=== PATIENT | female | born 1980 | race Two or more races ===

== ENCOUNTER → 2023-08-11 | Outpatient (CLI) | payer OTHER ==
[2023-08-11 08:07] LABS: Basophils # (auto) 0 10 ^3/uL (0-0.2); Basophils % (auto) 0.8 % (0.0-2.0); Eosinophils # (auto) 0.1 10 ^3/uL (0-0.8); Eosinophils % (auto) 2.8 % (0.0-7.0); Hematocrit 40.3 % (36.0-46.0); Hemoglobin 13.3 g/dL (12.2-16.2); Lymphocytes # (auto) 1.9 10 ^3/uL (0.4-5.4); Lymphocytes % (auto) 46.6 % (10.0-50.0); Mean Corpuscular Hemoglobin 27.6 pg (28.0-32.0); Mean Corpuscular Hgb Conc. 33.1 g/dL (32.0-36.0); Mean Corpuscular Volume 83.6 fL (80.0-100.0); Monocytes # (auto) 0.2 10 ^3/uL (0-1.3); Monocytes % (auto) 4.7 % (0.0-12.0); Neutrophils # (auto) 1.8 10 ^3/uL (1.6-8.6); Neutrophils % (auto) 45.1 % (37.0-80.0); Red Blood Cells 4.82 10^6/uL (4.0-5.20); Red Cell Distribution Width 14.3 % (11.8-14.3)
[2023-08-11 08:46] LABS: Alanine Aminotransferase 67 U/L (7-40); Alkaline Phosphatase 70 U/L (46-116); Anion Gap 8 (5-15); Aspartate Aminotransferase 33 U/L (13-40); BUN/Creatinine Ratio 11.3 (10.0-20.0); Blood Urea Nitrogen 8 mg/dL (9-23); Calcium 9.6 mg/dL (8.5-10.1); Carbon Dioxide 23 mmol/L (20-30); Chloride 103 mmol/L (98-107); Glucose 219 mg/dL (74-106); Sodium 134 mmol/L (136-145); Triglycerides 468 mg/dL (< 150)
[2023-08-11 08:47] LABS: Albumin 4.5 g/dL (3.2-4.8); Bilirubin, Total 0.7 mg/dL (0.2-1.0); Cholesterol 271 mg/dL (< 200); HDL Cholesterol 43 mg/dL (40-59); Total Protein 7.8 g/dL (5.7-8.2)
== END | disposition home or self-care (01) ==
LOC: LAB 07:30
PROVIDERS: ATTEND Family Medicine
DX: E11.65 Type 2 diabetes mellitus with hyperglycemia (principal); E78.2 Mixed hyperlipidemia; E55.9 Vitamin D deficiency, unspecified; D50.9 Iron deficiency anemia, unspecified
CPT/HCPCS: 36415; 80053; 80061; 82306; 83036; 83540; 83550; 85025

== ENCOUNTER → 2024-01-04 | Outpatient (CLI) | payer OTHER ==
[2024-01-04 09:04] LABS: % Iron Saturation 13.8 % (15-50)
[2024-01-04 09:08] LABS: Alanine Aminotransferase 32 U/L (7-40); Albumin 4.7 g/dL (3.2-4.8); Alkaline Phosphatase 69 U/L (46-116); Anion Gap 11 (5-15); Aspartate Aminotransferase 16 U/L (13-40); BUN/Creatinine Ratio 16.9 (10.0-20.0); Blood Urea Nitrogen 12 mg/dL (9-23); Calcium 9.6 mg/dL (8.7-10.4); Carbon Dioxide 22 mmol/L (20-31); Chloride 102 mmol/L (98-107); Glucose 246 mg/dL (74-106); Potassium 3.9 mmol/L (3.5-5.1); Sodium 135 mmol/L (136-145)
[2024-01-04 09:09] LABS: Bilirubin, Total 0.7 mg/dL (0.2-1.0)
== END | disposition home or self-care (01) ==
LOC: LAB 07:07
PROVIDERS: ATTEND Family Medicine
DX: E11.65 Type 2 diabetes mellitus with hyperglycemia (principal); E78.2 Mixed hyperlipidemia; D50.9 Iron deficiency anemia, unspecified
CPT/HCPCS: 36415; 80053; 82043; 82728; 83036; 83540; 83550; 85045

== ENCOUNTER 2024-02-07 11:47 | Inpatient (IN) | payer OTHER ==
[~2024-02-07] VITALS: Ht 157.5 cm; Wt 67.4 kg
[2024-02-07 14:46] VITALS: BP 133/89; PULSE 90; RESP 18; TEMP 97.7; O2SAT 97
[2024-02-07] MEDS ORDERED: METF750T54 PO (14:52)
[2024-02-07] MEDS ORDERED: ASPI-543 PO (14:52)
[2024-02-07] MEDS ORDERED: ATOR40TA52 PO (14:53)
[2024-02-07] MEDS ORDERED: HYDROcodone-ACET 5/325MG TAB PO PRN (15:45)
[2024-02-07] MEDS ORDERED: ONDANSETRON HCL 4 MG/2 ML VIAL IV PRN (15:45)
[2024-02-07] MEDS ORDERED: MORPHINE SULFATE INJ 2 MG/ml SYRG IV PRN ×2 (15:45)
[2024-02-07] MEDS ORDERED: ACETAMINOPHEN 325 MG TAB PO PRN (15:45)
[2024-02-07] MEDS ORDERED: NITROGLYCERIN 0.4 MG SL TAB SL PRN (15:45)
[2024-02-07] MEDS ORDERED: DEXTROSE (50%) 50ML SYRG IV PRN (15:45)
--- NOTE | 2024-02-07 15:51 | DVHHP2 ---
History of Present Illness Reason for Visit: Chest pain History of Present Illness This 43-year-old female patient with past medical history of diabetes type 2 and hyperlipidemia, a transfer from [facility] to rule out ACS. The patient reports intermittent sharp chest pain for the past two months. Symptoms worsened for the past few days and is associated with lightheadedness, dizziness, jaw pain, and shortness of breath for which prompted the patient to go to the emergency department for further evaluation. The patient currently denies chest pain, shortness of breath, [place], edema, or other acute symptoms. She denies tobacco, illicit drug, or ETOH use abuse. Denies familiar history of CAD. Labs including troponin unremarkable-- See paper chart Past Medical History As stated in HPI Past Surgical History Denies Family History Reviewed, non-contributory to the management of this case. Past Social History The patient lives at home, denies smoking, alcohol or illicit drugs abuse. Review of Systems Constitutional: No: Fever, Chills, Sweats, Weakness, Malaise, Other Eyes: No: Pain, Vision change, Conjunctivae inflammation, Eyelid inflammation, Other, Redness ENT: No: Ear pain, Ear discharge, Nose pain, Nose discharge, Nose congestion, Mouth pain, Mouth swelling, Throat pain, Throat swelling, Other Respiratory: Shortness of breath; No: Cough, Dry, SOB with excertion, Wheezing, Hemoptysis, Pleuritic Pain, Sputum, Wheezing, Other Cardiovascular: Chest Pain, Other (Jaw pain); No: Palpitations, Orthopnea, Paroxysmal Noc. Dyspnea, Edema, Lt Headedness Gastrointestinal: No: Nausea, Vomiting, Abdominal Pain, Diarrhea, Constipation, Melena, Hematochezia, Other Genitourinary: No Dysuria, No Frequency, No Incontinence, No Hematuria, No Retention, No Other Musculoskeletal: No: other, neck pain, shoulder pain, arm pain, back pain, hand pain, leg pain, foot pain Skin: No: Rash, Lesions, Jaundice, Bruising, Other Neurological: No: Weakness, Numbness, Incoordination, Change in speech, Confusion, Seizures, Other Exam Vital Signs Vital Signs Date Time Temp Pulse Resp B/P (MAP) Pulse Ox O2 Delivery O2 Flow Rate FiO2 02/07/24 14:46 90 18 97 Room Air* 0 21 02/07/24 14:46 97.7 133/89 (104) 97.7 General Appearance: Alert, Oriented X3, Cooperative, No acute distress HEENT: Atraumatic, PERRLA, EOMI, Mucous membr. moist/pink Respiratory: Clear to auscultation, Normal air movement Cardiovascular: Regular rate, Normal S1, Normal S2 Abdominal: Normal bowel sounds, Soft, No tenderness, No hepatospenomegaly Extremities: No clubbing, No cyanosis, No edema, Normal pulses Skin: No rashes, No breakdown, No significant lesion Neuro: Normal gait, Normal speech, Strength at 5/5 X4 ext Psych/Mental Status: Mental status NL Assessment/Plan Assessment/Plan # Chest pain to rule out ACS Admit to telemetry unit Chest pain protocol asa, statins Cardiology consult Echo Check TSH # hyperlipidemia Check lipid panel Continue with statins # diabetes type 2 ISS Check A1c DVT prophylaxis Medical plan discussed with patient and RN Plan discussed with: Patient My Orders Orders - CHARLEY SOLIS TEACHER EDUCATION DIRECTOR Procedure Category Date Status Time Admit ADMIT 02/07/24 Verified 15:34 Code Status CODE 02/07/24 Verified 15:34 Hydrocodone-Acet PHA 02/07/24 Verified 5/325mg Tab ([place] 15:45 Ondansetron Hcl PHA 02/07/24 Verified (Zofran) 15:45 Enoxaparin Sodium PHA 02/08/24 Verified (Lovenox) 10:00 Complete Blood Count LAB 02/08/24 Verified 04:00 Comprehensive LAB 02/08/24 Verified Metabolic Panel 04:00 Cardiac DIET 02/07/24 Verified Diet-2gna,Lofat,Lochol Dinner Echo 2d Mode Cardiac US 02/07/24 Verified DOP 15:34 Condition: Fair EDDA 02/07/24 Verified 15:34 Acetaminophen Tablet PHA 02/07/24 Verified (Tylenol Tablet) 15:45 Morphine Sulfate PHA 02/07/24 Verified Injection 15:45 Nitroglycerin PHA 02/07/24 Verified Sublingual (Ntrostat 15:45 Morphine Sulfate PHA 02/07/24 Verified Injection 15:45 Stat Ekg For Chest [facility] 02/07/24 Verified Pain 15:34 Notify Of Changes [facility] 02/07/24 Verified From Base 15:34 Titrator For [facility] 02/07/24 Verified 24 Hours 15:34 Emergency Dysrhythmia [facility] 02/07/24 Verified Protocol 15:34 Rhythm Strips Once [facility] 02/07/24 Verified Every Shift 15:34 Oxygen By Nasal RT 02/07/24 Verified Cannula 15:34 Electrocardigram EKG 02/07/24 Verified 15:34 Troponin-I Hs LAB 02/07/24 Verified 15:34 * Cardiology Consult CONS 02/07/24 Verified 15:34 Npo After Midnight DIET 02/07/24 Verified Dinner Lipid Panel LAB 02/07/24 Verified 15:34 Thyroid Stimulating LAB 02/07/24 Verified Hormone 15:34 Hemoglobin A1c LAB 02/07/24 Verified 15:34 B-Type Natriuretic LAB 02/07/24 Verified Peptide 15:34 Electrocardigram EKG 02/08/24 Verified 04:00 Date of Service: Feb 07, 2024 Billing Provider: CHARLEY SOLIS Common Visit Codes: [id number] INP/OBS CARE (HIGH) CHARLEY SOLIS Feb 07, 2024 15:51
[2024-02-07 16:43] LABS: INR 1.04 (0.9-1.15); Partial Thromboplastin Time 26.8 SEC (24.5-34.5)
[2024-02-07 16:53] LABS: Triglycerides 494 mg/dL (< 150)
[2024-02-07 16:55] LABS: Cholesterol 230 mg/dL (< 200); HDL Cholesterol 40 mg/dL (40-59)
[2024-02-07 17:05] VITALS: BP 112/80; PULSE 87; RESP 16; TEMP 97.5; O2SAT 98
[2024-02-07 20:20] VITALS: PULSE 72; PULSE 85; RESP 17; O2SAT 96
[2024-02-07 22:00] VITALS: BP 128/83; PULSE 87; RESP 17; TEMP 98.1; O2SAT 96
[2024-02-07] MEDS: InsuLIN REG 1unit/0.01ml Soln (100units/ml) SC SCH (22:26)
[2024-02-07] MEDS: ACCU-CHEK COMFORT CURVE STRIP VI SCH (22:27)
[2024-02-07 22:51] LABS: Urine Bacteria FEW /hpf (None Seen); Urine Blood 2+ /uL (Negative); Urine Clarity Clear (Clear); Urine Color Light-Yellow (Yellow); Urine Protein, UAD Negative (Negative); Urine Specific Gravity 1.009 (1.001-1.035); Urine Urobilinogen Normal (Negative); Urine WBC 3 /hpf (0 - 5)
[2024-02-08] VITALS (7 sets, daily range): BP systolic 107–128; BP diastolic 73–88; PULSE 78–99; RESP 17–18; TEMP 98–98.3; O2SAT 96–100
[2024-02-08 07:10] LABS: Basophils # (auto) 0 10 ^3/uL (0-0.2); Basophils % (auto) 0.9 % (0.0-2.0); Eosinophils # (auto) 0.1 10 ^3/uL (0-0.8); Eosinophils % (auto) 2.4 % (0.0-7.0); Hematocrit 38.7 % (36.0-46.0); Lymphocytes # (auto) 1.6 10 ^3/uL (0.4-5.4); Lymphocytes % (auto) 39.7 % (10.0-50.0); Mean Corpuscular Hemoglobin 28.4 pg (28.0-32.0); Mean Corpuscular Hgb Conc. 33.6 g/dL (32.0-36.0); Mean Corpuscular Volume 84.4 fL (80.0-100.0); Monocytes # (auto) 0.2 10 ^3/uL (0-1.3); Monocytes % (auto) 4.2 % (0.0-12.0); Neutrophils # (auto) 2.1 10 ^3/uL (1.6-8.6); Neutrophils % (auto) 52.8 % (37.0-80.0); Nucleated Red Blood Cells % 0.2 %; Platelet Count (auto) 233 10^3/uL (140-450); Red Blood Cells 4.58 10^6/uL (4.0-5.20); Red Cell Distribution Width 13.8 % (11.8-14.3)
[2024-02-08 07:14] LABS: Alanine Aminotransferase 54 U/L (7-40); Albumin 4.1 g/dL (3.2-4.8); Alkaline Phosphatase 62 U/L (46-116); Anion Gap 8 (5-15); Aspartate Aminotransferase 37 U/L (13-40); BUN/Creatinine Ratio 12.5 (10.0-20.0); Blood Urea Nitrogen 7 mg/dL (9-23); Calcium 9.2 mg/dL (8.7-10.4); Carbon Dioxide 23 mmol/L (20-31); Chloride 106 mmol/L (98-107); Glucose 156 mg/dL (74-106); Potassium 3.8 mmol/L (3.5-5.1); Sodium 137 mmol/L (136-145)
[2024-02-08 07:15] LABS: Bilirubin, Total 0.9 mg/dL (0.2-1.0); Total Protein 7.2 g/dL (5.7-8.2)
[2024-02-08] MEDS: ENOXAPARIN SOD 40 MG/0.4 ML SYRINGE SC SCH (10:00)
[2024-02-08] MEDS: ASPirin-EC 81 mg tab PO SCH (11:08)
[2024-02-08 12:51] LABS: Amphetamine Screen, Urine Neg (NEGATIVE); Barbiturate Scree,Urine Neg (NEGATIVE); Benzodiazephine Screen, Urine Neg (NEGATIVE); Cannabinoid Screen, Urine Neg (NEGATIVE); Cocaine Screen, Urine Neg (NEGATIVE); Opiate Scree,Urine Neg (NEGATIVE); Phencyclidine Screen, Urine Neg (NEGATIVE)
--- NOTE | 2024-02-08 13:17 | DVH ---
CHEST RADIOGRAPH Indication:chest pain Technique: Single frontal view of the chest was obtained Comparison: None FINDINGS: Lines and Tubes: None Lungs: No focal consolidation. Pleura: No effusion. No pneumothorax. Cardiomediastinal contours: Unremarkable Bones: No acute osseous abnormality. IMPRESSION: No acute cardiopulmonary disease.
[2024-02-08 15:56] LABS: COVID19 ANTIGEN SOFIA FIA NEGATIVE (NEGATIVE); Rapid Influenza A Negative (Negative); Rapid Influenza B Negative (Negative)
--- NOTE | 2024-02-08 16:21 | DVHSR ---
APPROVED REPORT EXAM: Two-dimensional and M-mode echocardiogram with Doppler and color Doppler. Blood Pressure: 133/89 mmHg INDICATION R/O acs RISK FACTORS Height: 5'2", Weight: 144 DIMENSIONS LVDd4.1 (3.8-5.7cm)LA (2D)3.2 (1.9-4.0cm)Aortic Root3.2 (2.0-3.7cm) LVDs2.7 (2.5-4.0cm)LA (MM) (1.9-4.0cm)Aortic Cusp Exc1.8 (1.5-2.0cm) EF (%) 60.0 (55-70%)Rt. Atrium3.2 (1.9-4.0cm)Asc. Aorta cm IVSd0.9 (0.7-1.1cm)RV (D)3.0 (1.8-2.4cm) PWd1.0 (0.7-1.1cm) Mitral Valve MitralMitral Stenosis E wave0.81m/sMV Mean GR.mmHg A wave0.85m/sMV Peak GR.mmHg E/A ratio1.02D MVAcm2 DECEL [id number] 1/2 Timems Aortic Valve Aortic ValveAortic Stenosis V10.90m/Jt Mean GR.3mmHg V21.21m/Jt Peak GR.6mmHg LVOT Diameter2.1 (1.8-2.4cm)Doppler AVA2.57cm2 Pulmonic Valve V21.15m/s Tricuspid Valve TR Velocity2.43m/s [id number] Conclusion Normal left ventricular size and dimension. Normal left ventricular systolic function estimated ejec tion fraction 55%. There is a grade 1 diastolic dysfunction. Normal right ventricular size and dimension. Normal right ventricular systolic function. Normal biatrial size and dimension. Normal aortic valve structure and function. Normal mitral valve structure and function. Normal tricuspid valve structure and function. The pulmonary valve is grossly normal. No pericardial effusion.
--- NOTE | 2024-02-08 16:32 | DVHINCON2 ---
Date Seen: Feb 08, 2024 Referring Physician Reason for Consultation Chest pain rule out ACS History of Present Illness 43-year-old female patient with past medical history of type 2 diabetes, hyperlipidemia who presented to the emergency department with a chief complaint of chest pain. She for possible ischemic changes or other describes the pain as a sharp, pressure-like sensation of moderate to severe intensity, lasting about 5 minutes per episode. She reports 1 episode where the pain radiated to the jaw, with a jaw pain lasting approximately 1 minute before resolving completely. She has been experiencing similar chest pain intermittently over the past 2 months, sometimes associated with a sensation of head and neck discomfort. The patient denies any recent infection or viral illnesses and reports that the pain is not triggered or worsened by physical activity. She experiences these episodes both at rest and during light activities, such as cooking, with no identifiable triggers, stressors or strenuous activity associated with the onse t. In the emergency department her initial workup included an EKG, which was unremarkable and troponin levels which were negative. The urine test was also negative. Urinalysis revealed glucosuria, consistent with her history of diabetes, and her more recent hemoglobin A1c was 9%, indicating suboptimal glycemic control. Complete blood count and comprehensive metabolic panel were within normal limits except for an elevated glucose level. An echocardiogram is pending and the patient is scheduled for an stress test to assess for possible ischemic changes or other cardiac pathologies. Past Medical History Type 2 diabetes Overweight Hyperlipidemia Family History: Diabetes mellitus G8 MOTHER G8 BROTHER Hypercholesterolemia G8 MOTHER Hypertension G8 MOTHER Allergies: Coded Allergies: NO KNOWN ALLERGIES (Unverified , 02/07/24) Home Meds Reported Medications Atorvastatin Calcium (ATORVASTATIN CALCIUM) 40 Mg Tab, 1 TAB PO QPM, #90 TAB 3 Refills 02/07/24 Aspirin (Aspir-Low) 81 Mg Tab, 81 MG PO DAILY for 30 Days, MG 02/07/24 Metformin Hydrochloride (Metformin Hcl Er) 750 Mg Tab, 1 TAB PO BID, #60 TAB 5 Refills 02/07/24 Current Medications Current Medications Medications (Trade) Dose Ordered Sig/Jacqueline Route PRN Reason Start Time Stop Time Status Last Admin Enoxaparin Sodium (Lovenox) 40 mg DAILY SC 02/08/24 10:00 Aspirin (Ecotrin Enteric Coated Tablet) 81 mg DAILY PO 02/08/24 10:00 02/08/24 11:08 Atorvastatin Calcium (Lipitor) 40 mg QPM PO 02/08/24 18:00 Diagnostic Test (Pha) (Accu-Chek Comfort Curve T) 1 strip ACHS 02/07/24 17:00 02/08/24 11:00 Insulin Human Regular (InsuLIN R) ACHS SC 02/07/24 17:00 02/08/24 06:38 Pantoprazole Sodium (Protonix) 40 mg DAILY IV 02/09/24 10:00 Review of Systems Constitutional: No: Fever, Chills, Sweats, Weakness, Malaise, Other Eyes: No: Pain, Vision change, Conjunctivae inflammation, Eyelid inflammation, Other, Redness ENT: No: Ear pain, Ear discharge, Nose pain, Nose discharge, Nose congestion, Mouth pain, Mouth swelling, Throat pain, Throat swelling, Other Respiratory: No Wheezing, Hemoptysis, Pleuritic Pain, Sputum, Wheezing, Other Cardiovascular: No: Chest Pain, Palpitations, Orthopnea, Paroxysmal Noc. Dy spnea, Edema, Lt Headedness, Other Gastrointestinal: No: Nausea, Vomiting, Abdominal Pain, Diarrhea, Constipation, Melena, Hematochezia, Other Musculoskeletal: No: other, neck pain, shoulder pain, arm pain, back pain, hand pain, leg pain, foot pain Neurological:; No: Weakness, Numbness, Incoordination, Change in speech, Confusion, Seizures Vital Signs Vital Signs Date Time Temp Pulse Resp B/P (MAP) Pulse Ox O2 Delivery O2 Flow Rate FiO2 02/08/24 12:00 98.0 82 18 128/88 (101) 96 98.0 02/08/24 08:10 Room Air* 0 21 Physical Exam Examination General Appearance: Alert, Oriented X3, Cooperative, No acute distress HEENT: EOMI Respiratory: Clear to auscultation, Normal air movement Cardiovascular: Regular rate, Normal S1, Normal S2 Abdominal: Normal bowel sounds Extremities: No cyanosis, No edema, Normal pulses, No tenderness/swelling Skin: No rashes, No breakdown Neuro: Normal gait, Normal speech, Strength at 5/5 X4 ext, Normal tone, Sensation intact, Cranial nerves 3-12 NL, Reflexes 2+ Psych/Mental Status: Mental status NL, Mood NL Labs/Diagnostic Data Labs Test 02/08/24 15:33 02/08/24 10:58 02/08/24 06:10 02/07/24 22:20 Range/Units Influenza Type A Antigen Negative Negative Influenza Type B Antigen Negative Negative SARS-CoV-2 Antigen (Rapid) Negative NEGATIVE POC Glucose 141 H 70-106 mg/dl White Blood Count 4.0 L 4.4-10.8 10^3/uL Red Blood Count 4.58 4.0-5.20 10^6/uL Hemoglobin 13.0 12.2-16.2 g/dL Hematocrit 38.7 36.0-46.0 % Mean Corpuscular Volume 84.4 80.0-100.0 fL Mean Corpuscular Hemoglobin 28.4 28.0-32.0 pg Mean Corpuscular Hemoglobin Concent 33.6 32.0-36.0 g/dL Red Cell Distribution Width 13.8 11.8-14.3 % Platelet Count 233 140-450 10^3/uL Mean Platelet Volume 8.2 6.9-10.8 fL Neutrophils (%) (Auto) 52.8 37.0-80.0 % Lymphocytes (%) (Auto) 39.7 10.0-50.0 % Monocytes (%) (Auto) 4.2 0.0-12.0 % Eosinophils (%) (Auto) 2.4 0.0-7.0 % Basophils (%) (Auto) 0.9 0.0-2.0 % Neutrophils # (Auto) 2.1 1.6-8.6 10 ^3/uL Lymphocytes # (Auto) 1.6 0.4-5.4 10 ^3/uL Monocytes # (Auto) 0.2 0-1.3 10 ^3/uL Eosinophils # (Auto) 0.1 0-0.8 10 ^3/uL Basophils # (Auto) 0 0-0.2 10 ^3/uL Nucleated Red Blood Cells 0.2 % Sodium Level 137 136-145 mmol/L Potassium Level 3.8 3.5-5.1 mmol/L Chloride Level 106 98-107 mmol/L Carbon Dioxide Level 23 20-31 mmol/L Anion Gap 8 5-15 Blood Urea Nitrogen 7 L 9-23 mg/dL Creatinine 0.56 0.550-1.02 mg/dL Glomerular Filtration Rate Calc 115 >90 mL/min BUN/Creatinine Ratio 12.5 10.0-20.0 Serum Glucose 156 H 74-106 mg/dL Calcium Level 9.2 8.7-10.4 mg/dL Total Bilirubin 0.9 0.2-1.0 mg/dL Aspartate Amino Transferase (AST) 37 13-40 U/L Alanine Aminotransferase (ALT) 54 H 7-40 U/L Alkaline Phosphatase 62 46-116 U/L Total Protein 7.2 5.7-8.2 g/dL Albumin 4.1 3.2-4.8 g/dL Beta HCG, Quantitative 0.1 L 1.5-4.2 mIU/mL Urine Color Light-yellow Yellow Urine Clarity Clear Clear Urine pH 7.0 5.0-9.0 Urine Specific [place] 1.009 1.001-1.035 Urine Protein Negative Negative Urine Ketones Trace Negative Urine Blood 2+ H Negative /uL Urine Nitrite Negative Negative Urine Bilirubin Negative Negative Urine Urobilinogen Normal Negative mg/dL Urine Leukocyte Esterase Negative Negative /uL Urine RBC 13 0 - 4 /hpf Urine WBC 3 0 - 5 /hpf Urine Squamous Epithelial Cells Few <5 /hpf Urine Bacteria Few H None Seen /hpf Urine Glucose 4+ H Normal mg/dL Urine Opiates Screen Neg NEGATIVE Urine Fentanyl Screen Neg NEGATIVE Urine Barbiturates Screen Neg NEGATIVE Urine Phencyclidine Screen Neg NEGATIVE Urine Amphetamines Screen Neg NEGATIVE Urine Benzodiazepines Screen Neg NEGATIVE Urine Cocaine Screen Neg NEGATIVE Urine Cannabinoids Screen Neg NEGATIVE Test 02/07/24 16:11 Range/Units Prothrombin Time 11.0 9.3-11.8 sec Prothrombin Time INR 1.04 0.9-1.15 Activated Partial Thromboplast Time 26.8 24.5-34.5 SEC Hemoglobin A1c 9.0 H <5.7 % A1C Troponin I High Sensitivity < 3 L </=34 ng/L B-Type Natriuretic Peptide 16.46 0-100 pg/mL Triglycerides Level 494 H < 150 mg/dL Cholesterol Level 230 H < 200 mg/dL LDL Cholesterol < 100 mg/dL HDL Cholesterol 40 40-59 mg/dL Thyroid Stimulating Hormone (TSH) 0.71 0.55-4.78 uIU/mL Assessment Acute chest pain, likely costochondritis, rule out ACS. Uncontrolled type 2 diabetes, hemoglobin A1c 9% Overweight Plan/Recommendation Conservative management EKG and troponin levels were unremarkable Treadmill stress test Thank you for allowing us participate in this case Case discussed with Dr. Kay Critical care, time spent: 48 minutes Plan discussed with: Patient Date of Service: Feb 08, 2024 Billing Provider: GAYLE ALLEN MD Cardiology Common Codes: [id number] INP/OBS CARE (High) DOMONIQUE RODRIGUEZ RESIDENT Feb 08, 2024 16:32
[2024-02-08] MEDS: PANTOPRAZOLE 40 MG/10 ML VIAL INJ IV ONE (17:30)
[2024-02-08] MEDS: ATORVASTATIN 20 MG TAB PO SCH (17:34)
--- NOTE | 2024-02-08 17:50 | DVHPNRES ---
Progress Note Date Seen: Feb 08, 2024 Resident Creating Document: ODILON GERMAN BRYANNA Has the PT tested + for MRSA If YES, has PT been informed?: No Medical Necessity Reason Pt with a Central, PICC or Fol: No Subjective Review of Systems This is a 43-year-old female patient with a past medical history of diabetes type 2 and hyperlipidemia, transferred from [facility] to rule out ACS. The patient reports intermittent sharp chest pain for the past two months. Symptoms worsened over the past 2 days, with central chest pain radiating to the jaw and left shoulder, rated 6/10, and constant with no clear exacerbating or relieving factors. The pain is associated with lightheadedness, dizziness, jaw pain, and mild shortness of breath, which prompted the patient to go to the emergency department for further evaluation. PMHx: Diabetes type 2, hyperlipidemia PSHx: Appendectomy Family history: Noncontributory Social history: Lives with her at home, denies smoking, drinks occasionally, and denies any drug use Home medication: Aspirin, atorvastatin, metoprolol Allergic history: Noncontributory On physical examination, the patient has mild chest tenderness but is otherwise unremarkable. Lab studies showed raised HbA1c at 9.0, raised triglycerides at 494, total cholesterol 230, and HDL 40. The patient was admitted to the hospital for the evaluation of possible ACS. During hospital admission, the patient was placed on the ACS protocol (atorvastatin, aspirin, Lovenox, and nitroglycerin). Serial troponin I levels were within normal limits. Chest X-ray does not show any acute cardiopulmonary abnormalities. Echocardiogram shows normal left ventricular systolic function with an estimated ejection fraction of 55% and grade 1 diastolic dysfunction. Cardiology was consulted and recommended continuing medical management and planning a treadmill stress test. The patient was seen and examined at the bedside. She is feeling better since admission but is still complaining of mild chest pain. Objective vital signs Vital Sign Date Time Temp Pulse Resp B/P (MAP) Pulse Ox O2 Delivery O2 Flow Rate FiO2 02/08/24 12:00 98.0 82 18 128/88 (101) 96 98.0 02/08/24 08:10 Room Air* 0 21 Total Intake and Output 02/07/24 02/07/24 02/08/24 15:00 23:00 07:00 Intake Total 0 ml 1600 ml Balance 0 ml 1600 ml medications Current Medications Medications Dose Ordered Sig/Jacqueline Route Start Time Stop Time Status Last Admin Dose Admin Acetaminophen/ Hydrocodone Bitart 1 tab Q4HP PRN PO 02/07/24 15:45 Ondansetron HCl 4 mg Q4HP PRN IV 02/07/24 15:45 Enoxaparin Sodium 40 mg DAILY SC 02/08/24 10:00 Acetaminophen 650 mg Q6HP PRN PO 02/07/24 15:45 Morphine Sulfate 2 mg Q4HPRN PRN IV 02/07/24 15:45 Nitroglycerin 0.4 mg Q5MINP PRN SL 02/07/24 15:45 Morphine Sulfate 2 mg Q30M PRN IV 02/07/24 15:45 Aspirin 81 mg DAILY PO 02/08/24 10:00 02/08/24 11:08 81 MG Atorvastatin Calcium 40 mg QPM PO 02/08/24 18:00 Diagnostic Test (Pha) 1 strip ACHS 02/07/24 17:00 02/08/24 11:00 1 STRIP Insulin Human Regular ACHS SC 02/07/24 17:00 02/08/24 06:38 3 UNITS Dextrose 50 ml UD PRN IV 02/07/24 15:45 Pantoprazole Sodium 40 mg DAILY IV 02/09/24 10:00 Examination General Appearance: Alert, Oriented X3, Cooperative, No acute distress HEENT: Atraumatic, PERRLA, EOMI, Mucous membrane moist/pink Respiratory: Clear to auscultation, Normal air movement Cardiovascular: Regular rate, Normal S1, Normal S2, No murmurs, mild chest wall tenderness Abdominal: Normal bowel sounds, Soft, No tenderness, No hepatospenomegaly, No masses Extremities: No clubbing, No cyanosis, No edema, Normal pulses, No tenderness/swelling Skin: No rashes, No breakdown, No significant lesion laboratory and microbiology Laboratory Tests 02/08/24 06:10 Test 02/08/24 06:10 Range/Units Serum Glucose 156 H 74-106 mg/dL Labs and/or images reviewed: Labs reviewed by me, Image(s) reviewed by me Problem List/Assessment/Plan Problem List/Assessment/Plan Chest pain to rule out ACS Possible costochondritis Cardiology o board, recommended medical management at the moment, planned for the treadmill stress test Echo echo shows normal left ventricular function with ejection fraction 55% Continue statin, aspirin Continue telemetry Mixed hyperlipidemia Continue atorvastatin Uncontrolled diabetes type 2 Hb A1c is at 9.0 Insulin regular according to moderate sliding scale GERD Protonix UTI, unspecified location Urinalysis shows UTI Urine culture Ceftriaxone Overweight Counseled regarding lifestyle changes including health food intake to decrease weight DVT prophylaxis Lovenox Code status Goals of care discussed for 20 minutes; Full Code Diet Diabetic diet Case discussed with Dr. Valdivia Plan discussed with: Patient, Spouse, Other (RN) My Orders My Orders Orders - ODILON GERMAN RESDIGRICEL Procedure Category Date Status Time Pantoprazole PHA 02/09/24 In Process (Protonix) 10:00 Addendum Addendum Addendum I was physically present for the vo portions of the service provided to patient by THE RESIDENT. I have reviewed the documentation, discussed the case with resident and agree with the resident's documentation except as noted. Also the patient's clinical case was discussed with the patient's nurse. This medical document was created using an electronic medical record system with computerized dictation system. Although this document has been carefully reviewed, there might still be some phonetic and typographical errors. These areas are purely typographical due to imperfections of the software programs, and do not reflect any compromise in the patient's medical care. Late signature. Date of Service: Feb 08, 2024 Billing Provider: GIN VALDIVIA MD Common Visit Codes: [id number] INP/OBS CARE(HIGH) Secondary Visit Codes: [id number] CARE PLAN 30 MINUTES (20 minutes) ODILON GERMAN RESDIGRICEL Feb 08, 2024 17:50 GIN VALDIVIA MD Feb 09, 2024 10:00
[2024-02-08] MEDS: cefTRIAXone 1GM/50ML D5W 50 ML IV SCH (18:34)
[2024-02-09] VITALS (8 sets, daily range): BP systolic 99–128; BP diastolic 61–90; PULSE 70–96; RESP 16–20; TEMP 98.1–98.3; O2SAT 96–100
[2024-02-09] MEDS: cefTRIAXone 1GM/50ML D5W 50 ML IV SCH (00:34)
[2024-02-09] MEDS ORDERED: PANT40T PO (05:37)
[2024-02-09] MEDS ORDERED: METF-372 PO (05:37)
[2024-02-09] MEDS ORDERED: CEPH250C PO (05:37)
--- NOTE | 2024-02-09 07:02 | DVHDSRES ---
Discharge Summary Date of Admission Resident Creating Document: ODILON GERMAN RESDIENT Feb 07, 2024 at 14:25 Date of Discharge: Feb 09, 2024 Admitting Diagnosis Chest pain to rule out ACS Labs/Diagnostic Data: Laboratory Results Test 02/08/24 23:23 02/08/24 15:33 02/08/24 06:10 02/07/24 22:20 POC Glucose 157 mg/dl (70-106) Influenza Type A Antigen Negative (Negative) Influenza Type B Antigen Negative (Negative) SARS-CoV-2 Antigen (Rapid) Negative (NEGATIVE) White Blood Count 4.0 10^3/uL (4.4-10.8) Red Blood Count 4.58 10^6/uL (4.0-5.20) Hemoglobin 13.0 g/dL (12.2-16.2) Hematocrit 38.7 % (36.0-46.0) Mean Corpuscular Volume 84.4 fL (80.0-100.0) Mean Corpuscular Hemoglobin 28.4 pg (28.0-32.0) Mean Corpuscular Hemoglobin Concent 33.6 g/dL (32.0-36.0) Red Cell Distribution Width 13.8 % (11.8-14.3) Platelet Count 233 10^3/uL (140-450) Mean Platelet Volume 8.2 fL (6.9-10.8) Neutrophils (%) (Auto) 52.8 % (37.0-80.0) Lymphocytes (%) (Auto) 39.7 % (10.0-50.0) Monocytes (%) (Auto) 4.2 % (0.0-12.0) Eosinophils (%) (Auto) 2.4 % (0.0-7.0) Basophils (%) (Auto) 0.9 % (0.0-2.0) Neutrophils # (Auto) 2.1 10 ^3/uL (1.6-8.6) Lymphocytes # (Auto) 1.6 10 ^3/uL (0.4-5.4) Monocytes # (Auto) 0.2 10 ^3/uL (0-1.3) Eosinophils # (Auto) 0.1 10 ^3/uL (0-0.8) Basophils # (Auto) 0 10 ^3/uL (0-0.2) Nucleated Red Blood Cells 0.2 % Sodium Level 137 mmol/L (136-145) Potassium Level 3.8 mmol/L (3.5-5.1) Chloride Level 106 mmol/L (98-107) Carbon Dioxide Level 23 mmol/L (20-31) Anion Gap 8 (5-15) Blood Urea Nitrogen 7 mg/dL (9-23) Creatinine 0.56 mg/dL (0.550-1.02) Glomerular Filtration Rate Calc 115 mL/min (>90) BUN/Creatinine Ratio 12.5 (10.0-20.0) Serum Glucose 156 mg/dL (74-106) Calcium Level 9.2 mg/dL (8.7-10.4) Total Bilirubin 0.9 mg/dL (0.2-1.0) Aspartate Amino Transferase (AST) 37 U/L (13-40) Alanine Aminotransferase (ALT) 54 U/L (7-40) Alkaline Phosphatase 62 U/L (46-116) Total Protein 7.2 g/dL (5.7-8.2) Albumin 4.1 g/dL (3.2-4.8) Beta HCG, Quantitative 0.1 mIU/mL (1.5-4.2) Urine Color Light-yellow (Yellow) Urine Clarity Clear (Clear) Urine pH 7.0 (5.0-9.0) Urine Specific [place] 1.009 (1.001-1.035) Urine Protein Negative (Negative) Urine Ketones Trace (Negative) Urine Blood 2+ /uL (Negative) Urine Nitrite Negative (Negative) Urine Bilirubin Negative (Negative) Urine Urobilinogen Normal mg/dL (Negative) Urine Leukocyte Esterase Negative /uL (Negative) Urine RBC 13 /hpf (0 - 4) Urine WBC 3 /hpf (0 - 5) Urine Squamous Epithelial Cells Few /hpf (<5) Urine Bacteria Few /hpf (None Seen) Urine Glucose 4+ mg/dL (Normal) Urine Opiates Screen Neg (NEGATIVE) Urine Fentanyl Screen Neg (NEGATIVE) Urine Barbiturates Screen Neg (NEGATIVE) Urine Phencyclidine Screen Neg (NEGATIVE) Urine Amphetamines Screen Neg (NEGATIVE) Urine Benzodiazepines Screen Neg (NEGATIVE) Urine Cocaine Screen Neg (NEGATIVE) Urine Cannabinoids Screen Neg (NEGATIVE) Test 02/07/24 16:11 Prothrombin Time 11.0 sec (9.3-11.8) Prothrombin Time INR 1.04 (0.9-1.15) Activated Partial Thromboplast Time 26.8 SEC (24.5-34.5) Hemoglobin A1c 9.0 % A1C (<5.7) Troponin I High Sensitivity < 3 ng/L (</=34) B-Type Natriuretic Peptide 16.46 pg/mL (0-100) Triglycerides Level 494 mg/dL (< 150) Cholesterol Level 230 mg/dL (< 200) LDL Cholesterol mg/dL (< 100) HDL Cholesterol 40 mg/dL (40-59) Thyroid Stimulating Hormone (TSH) 0.71 uIU/mL (0.55-4.78) Other Laboratory Tests 02/08/24 06:10 Brief Hx & Hospital Course: This is a 43-year-old female patient with a past medical history of diabetes type 2 and hyperlipidemia, transferred from [facility] to rule out ACS. The patient reports intermittent sharp chest pain for the past two months. Symptoms worsened over the past 2 days, with central chest pain radiating to the jaw and left shoulder, rated 6/10, and constant with no clear exacerbating or relieving factors. The pain is associated with lightheadedness, dizziness, jaw pain, and mild shortness of breath, which prompted the patient to go to the emergency department for further evaluation. PMHx: Diabetes type 2, hyperlipidemia PSHx: Appendectomy Family history: Noncontributory Social history: Lives with her at home, denies smoking, drinks occasionally, and denies any drug use Home medication: Aspirin, atorvastatin, metoprolol Allergic history: Noncontributory On physical examination, the patient has mild chest tenderness but is otherwise unremarkable. Lab studies showed raised HbA1c at 9.0, raised triglycerides at 494, total cholesterol 230, and HDL 40. The patient was admitted to the hospital for the evaluation of possible ACS. During hospital admission, the patient was placed on the ACS protocol (atorvastatin, aspirin, Lovenox, and nitroglycerin). Serial troponin I levels were within normal limits. Chest X-ray does not show any acute cardiopulmonary abnormalities. Echocardiogram shows normal left ventricular systolic function with an estimated ejection fraction of 55% and grade 1 diastolic dysfunction. Cardiology was consulted and recommended continuing medical management and planning a treadmill stress test. Discharge Statement: "Patient was advised to return to the ER or call 911 if any headaches, dizziness, shortness of breath, chest pain, abdominal pain, bleeding, fevers, or worsening of medical condition. Patient was counseled about treatment plan, medications, possible side effects, patientverbalized understanding. All questions were answered to the best of my ability. This discharge took greater then 30 minutes in planning, reviewing documentation, counseling the patient, and discussing with other team members." ASSESSMENT ASSESSMENT Assessment ODILON GERMAN Feb 09, 2024 07:02
--- NOTE | 2024-02-09 09:08 | DVHCARD ---
Cardiology Stress Test [place] Treadmill Stress Test [place] Referring MD: MD Tremaine resident Protocol: Robinson (without cardiolite) Reason for referral: Chest Pain Target heart Rate:@85%: 149 Percent MPHR: 176 METS: 10.1 Resting Heart rate: 93 Resting Blood Pressure: 128/90 Exercise Heart Rate: 166 Exercise Blood Pressure: 153/77 Baseline EKG: normal sinus rhythm Stress EKG: sinus tachycardia Functional Capacity: Good Normal Heart Rate Response: Adequate Blood Pressure Response: Hypertensive Clinical response: Non-ischemic Arrhythmia?: Yes (PAC's) Cardiolite Injected?: No ST-T Changes: Non/Minimal Probability of Inducible Ische: Low Date of Service: Feb 09, 2024 Billing Provider: GAYLE ALLEN MD Cardiology Common Codes: PROCEDURE ONLY Treadmill w/o Cardiolite: [id number], NATALIEP, RPT BRAIN QUEZADA Feb 09, 2024 09:08
[2024-02-09] MEDS: PANTOPRAZOLE 40 MG/10 ML VIAL INJ IV SCH (09:41)
--- NOTE | 2024-02-09 09:53 | DVHPN2 ---
Consult Progress Note Date Seen: Feb 09, 2024 Subjective Patient reports: No new complaints Review of Systems: HEENT:Normal, CVS:Normal, RESPIRATORY:Normal, GI:Normal, GI:Abnormal, MSK:Normal, NEURO:Normal Objective vital signs Vital Sign Date Time Temp Pulse Resp B/P (MAP) Pulse Ox O2 Delivery O2 Flow Rate FiO2 02/09/24 08:00 Room Air* 0 21 02/09/24 04:50 98.1 73 17 99/61 (74) 100 98.1 Total Intake and Output 02/08/24 02/08/24 02/09/24 15:00 23:00 07:00 Intake Total 50 ml 0 ml Balance 50 ml 0 ml medications Current Medications Medications Dose Ordered Sig/Jacqueline Route Start Time Stop Time Status Last Admin Dose Admin Acetaminophen/ Hydrocodone Bitart 1 tab Q4HP PRN PO 02/07/24 15:45 Ondansetron HCl 4 mg Q4HP PRN IV 02/07/24 15:45 Enoxaparin Sodium 40 mg DAILY SC 02/08/24 10:00 Acetaminophen 650 mg Q6HP PRN PO 02/07/24 15:45 Morphine Sulfate 2 mg Q4HPRN PRN IV 02/07/24 15:45 Nitroglycerin 0.4 mg Q5MINP PRN SL 02/07/24 15:45 Morphine Sulfate 2 mg Q30M PRN IV 02/07/24 15:45 Aspirin 81 mg DAILY PO 02/08/24 10:00 02/09/24 09:41 81 MG Atorvastatin Calcium 40 mg QPM PO 02/08/24 18:00 02/08/24 17:34 40 MG Diagnostic Test (Pha) 1 strip ACHS 02/07/24 17:00 02/09/24 06:50 1 STRIP Insulin Human Regular ACHS SC 02/07/24 17:00 02/08/24 06:38 3 UNITS Dextrose 50 ml UD PRN IV 02/07/24 15:45 Pantoprazole Sodium 40 mg DAILY IV 02/09/24 10:00 Examination: GENERAL:Normal, HEENT:Normal, NECK:Normal, LUNGS:Normal, CVS:Normal, ABDOMEN:Normal, MSK:Normal, SKIN:Normal, NEURO:Normal, :Normal laboratory and microbiology Laboratory Tests 02/08/24 06:10 Test 02/08/24 06:10 Range/Units Serum Glucose 156 H 74-106 mg/dL Problem List/Assessment/Plan Problem List/Assessment/Plan Acute chest pain, likely costochondritis, rule out ACS. Uncontrolled type 2 diabetes, hemoglobin A1c 9% Overweight Plan/Recommendation Conservative management EKG and troponin levels were unremarkable Treadmill stress test was unremarkable Thank you for allowing us participate in this case, there is no further workup indicated at this time , we are signing off. Case discussed with Dr. López Critical care, time spent: 48 minutes Plan discussed with: Patient Date of Service: Feb 09, 2024 Billing Provider: GAYLE LÓPEZ MD Cardiology Common Codes: [id number] INP/OBS CARE(Mod) DOMONIQUE RODRIGUEZ RESIDENT Feb 09, 2024 09:53
--- NOTE | 2024-02-09 17:07 | DVHDSRES ---
Discharge Summary Date of Admission Resident Creating Document: ITZ LERNER RESDIENT Feb 07, 2024 at 14:25 Date of Discharge: Feb 09, 2024 Admitting Diagnosis Chest pain to rule out the ACS Labs/Diagnostic Data: Laboratory Results Test 02/09/24 11:28 02/08/24 15:33 02/08/24 06:10 02/07/24 22:20 POC Glucose 155 mg/dl (70-106) Influenza Type A Antigen Negative (Negative) Influenza Type B Antigen Negative (Negative) SARS-CoV-2 Antigen (Rapid) Negative (NEGATIVE) White Blood Count 4.0 10^3/uL (4.4-10.8) Red Blood Count 4.58 10^6/uL (4.0-5.20) Hemoglobin 13.0 g/dL (12.2-16.2) Hematocrit 38.7 % (36.0-46.0) Mean Corpuscular Volume 84.4 fL (80.0-100.0) Mean Corpuscular Hemoglobin 28.4 pg (28.0-32.0) Mean Corpuscular Hemoglobin Concent 33.6 g/dL (32.0-36.0) Red Cell Distribution Width 13.8 % (11.8-14.3) Platelet Count 233 10^3/uL (140-450) Mean Platelet Volume 8.2 fL (6.9-10.8) Neutrophils (%) (Auto) 52.8 % (37.0-80.0) Lymphocytes (%) (Auto) 39.7 % (10.0-50.0) Monocytes (%) (Auto) 4.2 % (0.0-12.0) Eosinophils (%) (Auto) 2.4 % (0.0-7.0) Basophils (%) (Auto) 0.9 % (0.0-2.0) Neutrophils # (Auto) 2.1 10 ^3/uL (1.6-8.6) Lymphocytes # (Auto) 1.6 10 ^3/uL (0.4-5.4) Monocytes # (Auto) 0.2 10 ^3/uL (0-1.3) Eosinophils # (Auto) 0.1 10 ^3/uL (0-0.8) Basophils # (Auto) 0 10 ^3/uL (0-0.2) Nucleated Red Blood Cells 0.2 % Sodium Level 137 mmol/L (136-145) Potassium Level 3.8 mmol/L (3.5-5.1) Chloride Level 106 mmol/L (98-107) Carbon Dioxide Level 23 mmol/L (20-31) Anion Gap 8 (5-15) Blood Urea Nitrogen 7 mg/dL (9-23) Creatinine 0.56 mg/dL (0.550-1.02) Glomerular Filtration Rate Calc 115 mL/min (>90) BUN/Creatinine Ratio 12.5 (10.0-20.0) Serum Glucose 156 mg/dL (74-106) Calcium Level 9.2 mg/dL (8.7-10.4) Total Bilirubin 0.9 mg/dL (0.2-1.0) Aspartate Amino Transferase (AST) 37 U/L (13-40) Alanine Aminotransferase (ALT) 54 U/L (7-40) Alkaline Phosphatase 62 U/L (46-116) Total Protein 7.2 g/dL (5.7-8.2) Albumin 4.1 g/dL (3.2-4.8) Beta HCG, Quantitative 0.1 mIU/mL (1.5-4.2) Anti-Nuclear Antibody Screen Negative (Negative) Urine Color Light-yellow (Yellow) Urine Clarity Clear (Clear) Urine pH 7.0 (5.0-9.0) Urine Specific [place] 1.009 (1.001-1.035) Urine Protein Negative (Negative) Urine Ketones Trace (Negative) Urine Blood 2+ /uL (Negative) Urine Nitrite Negative (Negative) Urine Bilirubin Negative (Negative) Urine Urobilinogen Normal mg/dL (Negative) Urine Leukocyte Esterase Negative /uL (Negative) Urine RBC 13 /hpf (0 - 4) Urine WBC 3 /hpf (0 - 5) Urine Squamous Epithelial Cells Few /hpf (<5) Urine Bacteria Few /hpf (None Seen) Urine Glucose 4+ mg/dL (Normal) Urine Opiates Screen Neg (NEGATIVE) Urine Fentanyl Screen Neg (NEGATIVE) Urine Barbiturates Screen Neg (NEGATIVE) Urine Phencyclidine Screen Neg (NEGATIVE) Urine Amphetamines Screen Neg (NEGATIVE) Urine Benzodiazepines Screen Neg (NEGATIVE) Urine Cocaine Screen Neg (NEGATIVE) Urine Cannabinoids Screen Neg (NEGATIVE) Test 02/07/24 16:11 Prothrombin Time 11.0 sec (9.3-11.8) Prothrombin Time INR 1.04 (0.9-1.15) Activated Partial Thromboplast Time 26.8 SEC (24.5-34.5) Hemoglobin A1c 9.0 % A1C (<5.7) Troponin I High Sensitivity < 3 ng/L (</=34) B-Type Natriuretic Peptide 16.46 pg/mL (0-100) Triglycerides Level 494 mg/dL (< 150) Cholesterol Level 230 mg/dL (< 200) LDL Cholesterol mg/dL (< 100) HDL Cholesterol 40 mg/dL (40-59) Thyroid Stimulating Hormone (TSH) 0.71 uIU/mL (0.55-4.78) Other Laboratory Tests 02/08/24 06:10 Brief Hx & Hospital Course: This is a 43-year-old female patient with a past medical history of diabetes type 2 and hyperlipidemia, transferred from [facility] to rule out ACS. The patient reports intermittent sharp chest pain for the past two months. Symptoms worsened over the past 2 days, with central chest pain radiating to the jaw and left shoulder, rated 6/10, and constant with no clear exacerbating or relieving factors. The pain is associated with lightheadedness, dizziness, jaw pain, and mild shortness of breath, which prompted the patient to go to the emergency department for further evaluation. PMHx: Diabetes type 2, hyperlipidemia PSHx: Appendectomy Family history: Noncontributory Social history: Lives with her at home, denies smoking, drinks occasionally, and denies any drug use Home medication: Aspirin, atorvastatin, metoprolol Allergic history: Noncontributory On physical examination, the patient has mild chest tenderness but is otherwise unremarkable. Lab studies showed raised HbA1c at 9.0, raised triglycerides at 494, total cholesterol 230, and HDL 40. The patient was admitted to the hospital for the evaluation of possible ACS. During hospital admission, the patient was placed on the ACS protocol (atorvastatin, aspirin, Lovenox, and nitroglycerin). Serial troponin I levels were within normal limits. Chest X-ray does not show any acute cardiopulmonary abnormalities. Echocardiogram shows normal left ventricular systolic function with an estimated ejection fraction of 55% and grade 1 diastolic dysfunction. Cardiology was consulted, performed treadmill stress test the result was showing low probability of inducible ischemia with the following parameters (Stress EKG: sinus tachycardia, Functional Capacity: Good Normal, Heart Rate Response: Adequate, Blood Pressure Response: Hypertensive, Clinical response: Non- ischemic, Arrhythmia?: Yes (PAC's), Cardiolite Injected?: No, ST-T Changes: Non/Minimal) and recommended continuing medical management. On 02/09/2024, patient was feeling within the active complaint. The patient was clinically and hemodynamically stable. Discharge plan discussed with the patient the patient was discharged on home medication and recommended to follow up with the PCP within 1 week after discharge and within Cardiology on outpatient basis. The patient was also recommended to discuss the diabetes management with the PCP to adjust the medicine for optimal control of blood glucose. Physical examination on the day of discharge: General Appearance: Alert, Oriented X3, Cooperative, No acute distress HEENT: Atraumatic, PERRLA, EOMI, Mucous membrane moist/pink Respiratory: Clear to auscultation, Normal air movement Cardiovascular: Regular rate, Normal S1, Normal S2, No murmurs, no chest wall tenderness Abdominal: Normal bowel sounds, Soft, No tenderness, No hepatosplenomegaly, No masses Extremities: No clubbing, No cyanosis, No edema, Normal pulses, No tenderness/swelling Skin: No rashes, No breakdown, No significant lesion Neuro: Normal gait, Normal speech, Strength at 5/5 X4 ext, Normal tone, Sensation intact, Cranial nerves 3-12 NL, Reflexes 2+ Psych/Mental Status: Mental status NL, Mood NL Discussed with Dr. Valdivia Consults/Reason for consult Cardiology: Chest pain to rule out SAS Operations or Procedures [facility] Stress Test Worksheet w/coding Patient Name: Lynn Hernandez Unit Number: [id number] Date of : 1980 Patient Status: Admitted Inpatient Attending Doctor: Itz Lerner Resdient Cardiology Stress Test [place] Cardiology Stress Test [place] Treadmill Stress Test [place] Referring MD: MD Tremaine resident Protocol: Robinson (without cardiolite) Reason for referral: Chest Pain Target heart Rate:@85%: 149 Percent MPHR: 176 METS: 10.1 Resting Heart rate: 93 Resting Blood Pressure: 128/90 Exercise Heart Rate: 166 Exercise Blood Pressure: 153/77 Baseline EKG: normal sinus rhythm Stress EKG: sinus tachycardia Functional Capacity: Good Normal Heart Rate Response: Adequate Blood Pressure Response: Hypertensive Clinical response: Non-ischemic Arrhythmia?: Yes (PAC's) Cardiolite Injected?: No ST-T Changes: Non/Minimal Probability of Inducible Ische: Low Visit Coding Cardiology Date of Service: Feb 09, 2024 Billing Provider: GAYLE ALLEN MD Cardiology Common Codes: PROCEDURE ONLY Treadmill w/o Cardiolite: [id number], INTERP, RPT BRAIN QUEZADA [employer] ADJUNCT Feb 09, 2024 09:08 Condition at Discharge: Stable Final Diagnosis/Problems List Chest pain likely due to costochondritis/GERD GERD Mixed hyperlipidemia Uncontrolled diabetes type 2 GERD UTI, unspecified location Overweight Discharge Disposition: Home Discharge Instruct/Medications Diet: Cardiac 2g Na,low cholest Activity: No Restrictions, As Tolerated Follow Up/Referral: Follow up with the PCP within 1 week of the discharge for the adjustment of diabetic the medicine. Follow up with the Cardiology on outpatient basis. Discharge Statement: "Patient was advised to return to the ER or call 911 if any headaches, dizziness, shortness of breath, chest pain, abdominal pain, bleeding, fevers, or worsening of medical condition. Patient was counseled about treatment plan, medications, possible side effects, patientverbalized understanding. All questions were answered to the best of my ability. This discharge took greater then 30 minutes in planning, reviewing documentation, counseling the patient, and discussing with other team members." ASSESSMENT ASSESSMENT Assessment Addendum Addendum Addendum I was physically present for the vo portions of the service provided to patient by THE RESIDENT. I have reviewed the documentation, discussed the case with resident and agree with the resident's documentation except as noted. Also the patient's clinical case was discussed with the patient's nurse. This medical document was created using an electronic medical record system with computerized dictation system. Although this document has been carefully reviewed, there might still be some phonetic and typographical errors. These areas are purely typographical due to imperfections of the software programs, and do not reflect any compromise in the patient's medical care. Late signature. Date of Service: Feb 09, 2024 Billing Provider: GIN VALDIVIA MD Common Visit Codes: [id number] DISCH DAY >30min MAXISALLYABBI RESDIENT Feb 09, 2024 17:07 GIN VALDIVIA MD Feb 10, 2024 05:34
== END 2024-02-09 18:10 | disposition home or self-care (01) | DRG 206 ==
LOC: TELE-WESTW 14:25
PROVIDERS: ADMIT Internal Medicine; ATTEND Internal Medicine
DX: M94.0 Chondrocostal junction syndrome [Tietze] (principal); N39.0 Urinary tract infection, site not specified; K21.9 Gastro-esophageal reflux disease without esophagitis; E11.9 Type 2 diabetes mellitus without complications; Z20.822 Contact with and (suspected) exposure to COVID-19; E66.3 Overweight; E78.2 Mixed hyperlipidemia; Z83.3 Family history of diabetes mellitus; Z82.49 Family history of ischemic heart disease and other diseases of the circulatory system; Z68.27 Body mass index [BMI] 27.0-27.9, adult; Z90.49 Acquired absence of other specified parts of digestive tract
CPT/HCPCS: 36415; 71045; 80053; 80061; 80307; 81001; 82962; 83036; 83880; 84443; 84484; 84702; 85025; 85610; 85730; 86038; 87086; 87426; 87804; 93017; 93306; G0378; J1815; J2470